=== PATIENT | female | born 1975 | race Caucasian/White ===

== ENCOUNTER 2020-05-18 11:11 | Emergency (ER) | payer MEDICAID, SELFPAY ==
[2020-05-18 11:16] VITALS: BMI 28.1
[2020-05-18 11:18] VITALS: BP 146/91; PULSE 91; RESP 18; TEMP 36.6; O2SAT 99
--- NOTE | 2020-05-18 11:30 | ED_ITS ---
HPI - Abdominal Pain General: Chief Complaint: Abdominal Pain Stated Complaint: abd pain/n/v Time Seen by Provider: 05/18/20 11:16 Source: patient Mode of arrival: ambulatory Limitations: no limitations History of Present Illness: HPI narrative: Ms. Candelario is a very nice 44-year-old female who comes in complaining of an of the local hernia causing pain for the past 6 to 8 months. The pain is been intermittent in nature but is becoming more frequent and more significant. The patient has associated nausea vomiting with eating but denies any other abdominal pain. Patient has any upper abdominal pain or lower abdominal pain. There is no describe urinary symptoms such as frequency or urgency. There is been no fevers or chills. She is having regular bowel movements. Hernia self is not tender but she feels as though when she eats she gets sick to her stomach and throws up and she feels like this is due to the hernia. She is not seen or had anyone evaluate this up to this point. Pain does not radiate. The patient was going to be seen at [facility] today but because of her lack of insurance she was referred here to the emergency department. Associated Symptoms: Reports nausea and vomiting; Denies diarrhea, dysuria, fever(s) and syncope Related Data: Date of Last Menstrual Period: 05/11/20 Review of Systems Const: Denies: fever(s) Eyes: Denies: change in vision or blurry vision ENMT: Denies: throat pain or hoarseness Card: Denies: chest pain, palpitations, syncope, pre-syncope or dyspnea on exertion Resp: Denies: dyspnea, productive cough or non-productive cough GI: Reports: abdominal pain, nausea and vomiting; Denies: diarrhea : Denies: flank pain, dysuria, urinary frequency or urinary urgency Musc: Denies: neck pain, back pain or extremity pain Skin/Breast: Denies: rash or pruritus Neuro: Denies: headache(s), numbness in extremities, weakness in extremities or dizziness [facility] ED PFSH: Medical History (Updated 05/18/20 @ 13:18 by Marizol Diaz) No pertinent past medical history Surgical History (Updated 05/18/20 @ 11:32 by Marizol Diaz) History of reversal of tubal ligation History of tubal ligation Female Reproductive History: Date of last menstrual period: 08/11/20 Physical Exam Const: COMMON NORMALS: no acute distress, patient oriented x3, no limitations, healthy appearing and well nourished GENERAL APPEARANCE: cooperative, well kempt and well developed HENMT: COMMON NORMALS: normocephalic, atraumatic, external ears normal, EAC's normal and Normal external nose present HEAD & SCALP: normal to inspection, normocephalic and atraumatic FACE & SINUS: normal facial exam and face symmetric NOSE: Normal external nose present and Normal nares present EXTERNAL EAR: Yes external ears normal EXTERNAL AUDITORY CANAL: EAC's normal MOUTH: Normal oral and palatal mucosa present, lip normal and tongue normal Eye: COMMON NORMALS: Equal, round and reactive pupils present and conjunctivae normal GENERAL EYE: appearance normal, both eyes and all related structures ALIGNMENT: Yes alignment normal PERIORBITAL: periorbital findings normal EYELID: eyelids normal CONJUNCTIVA: Yes conjunctivae normal SCLERA: sclerae normal PUPIL: Yes Equal, round and reactive pupils present Neck/C-Spine: COMMON NORMALS: full ROM, no lymphadenopathy, supple, no meningeal signs and no JVD GENERAL: Yes normal visual inspection and Yes trachea midline Chest: COMMONS NORMALS: normal inspection of the chest and normal palpation of entire chest wall Resp: COMMON NORMALS: normal respiratory effort, No retractions, No use of accessory muscles and clear to auscultation bilaterally EFFORT & INSPECTION: Yes able to speak in complete sentences and Yes symmetric chest movement AUSCULTATION: clear to auscultation bilaterally, no crackles, no rales, no rhonchi and no wheezes Cardio: COMMON NORMALS: no JVD, regular rate, regular rhythm, S1 normal heart sound present and S2 normal heart sound present RATE: regular rate RHYTHM: regular rhythm HEART SOUNDS: S1 normal heart sound present, S2 normal heart sound present, no click, no gallops, no murmurs, no rubs and abnormal split S2 GI: COMMON NORMALS: Soft to palpation and No hepatosplenomegaly present PALPATION: Yes Soft to palpation, No Tenderness to palpation present (GI), No Guarding due to palpation present (GI), No Rigid due to palpation, Yes No hepatosplenomegaly present, No Hernia present, No Palpable mass present, No Pulsatile mass present and Yes Other GI palpation findings present (Supraumbilical hernia that is nontender to the touch and soft. With mild palpation cephalad the hernia reduces. The patient felt resolution of the hernia with this.) : COMMON NORMALS: Yes no CVA tenderness BLADDER/KIDNEY EXAM: Yes no CVA tenderness EXTERNAL FEMALE EXAM: No Hernia present Back/Pelvis: COMMON NORMALS: no CVA tenderness, thoracic and lumbar spine normal to inspection, no thoracic nor lumbar tenderness and thoraco-lumbar ROM normal Extremity: COMMON NORMALS: normal to inspection, full ROM, capillary refill normal, no joint enlargement, no clubbing, cyanosis or edema and no calf te nderness Neuro: COMMON NORMALS: patient oriented x3, CN's II-XII intact bilaterally, moves all extremities, no focal motor deficits and no sensory deficits noted MENINGEAL SIGNS: Yes no meningeal signs SPEECH: speech normal Psych: COMMON NORMALS: mental status grossly normal, Normal thought process present, cooperative, normal affect, speech normal and activity/motor behavior normal APPEARANCE: Yes well kempt SPEECH: Yes normal speech THOUGHT PROCESS: Normal thought process present Skin: COMMON NORMALS: no rashes or lesions noted, turgor normal, no jaundice, no petechiae and no mottling GENERAL SKIN EXAM: no rashes or lesions noted and turgor normal Course Vital Signs: Vital signs: Vital Signs Temperature 97.8 F 05/18/20 11:18 Pulse Rate 74 05/18/20 12:41 Respiratory Rate 16 05/18/20 12:41 Blood Pressure 145/93 05/18/20 12:41 Pulse Oximetry 100 05/18/20 12:41 MDM - Abdominal Pain MDM Narrative: Medical decision making narrative: Arrival - Mrs. Candelario is a nice 44-year-old female who comes in with stable vital signs with chronic abdominal pain for the past 6 to 8 months. On exam hernia is palpated and was reduced without any tenderness hernia was soft and nontender. Differential includes small bowel obstruction, incarcerated hernia, upper abdominal pain when others. At this time there is no clinical sign of peritonitis. We will continue work-up here but patient had resolution of her symptoms we will continue to monitor here to see if she has recurrence. Discharge -patient's pain has gradually improved. She did have a recurrence of her pain shortly after and the concern of possible peritonitis or bowel necrosis was possible. The patient though states she is gradually had improvement of her pain. The umbilical hernia is gone now. CT shows no sign of obstruction, bowel necrosis or otherwise. Clinically the patient had umbilical hernia that reduced but she had continued pain. I will go and discharge her and she agrees to follow-up with Dr. Szymanski. I did review with her at length the signs and symptoms for which to return here and she states she will do so. Lab Data: Labs: Lab Results 05/18/20 05/18/20 05/18/20 Range/Units 11:22 11:30 11:30 WBC 6.5 (4.0-10.0) 10^3/ uL RBC 4.01 L (4.1-5.3) 10^6/u L Hgb 12.8 (11.5-15.3) g/dL Hct 38.9 (37.0-47.0) % MCV 97.0 (81-99) fL MCH 31.9 (28.0-34.0) pg MCHC 32.9 (30.0-36.0) g/dL RDW 12.0 L (12.1-15.1) % Plt Count 305 (130-400) 10^3/c mm MPV 10.3 (7.4-10.4) fL Neut % (Auto) 60.8 % Lymph % (Auto) 28.8 % [place] % (Auto) 7.9 % Eos % (Auto) 0.9 % Baso % (Auto) 1.1 % Neut # (Auto) 3.95 (1.8-7.7) 10^3/u L Lymph # (Auto) 1.9 (0.8-4.8) 10^3/u L [place] # (Auto) 0.5 (0.2-0.9) 10^3/u L Eos # (Auto) 0.1 (0.0-0.8) 10^3/u L Baso # (Auto) 0.1 (0.0-0.1) 10^3/u L Nucleated RBC % (a uto) 0 % Nucleated RBCs # 0.0 /100WBC Sodium 137 (136-145) mmol/L Potassium 4.1 (3.5-5.1) mmol/L Chloride 99 (98-107) mmol/L Carbon Dioxide 29 (22-29) mmol/L Anion Gap 13.1 (5-19) BUN 9 (6-20) mg/dL Creatinine 0.6 (0.5-0.9) mg/dL GFR Calculation 108.1 (90-130) mL/min Glucose 93 (65-115) mg/dL Calculated Osmolal ity 280 L (285-295) mOsm/k g Lactic Acid (0.5-2.2) mmol/L Calcium 9.4 (8.5-10.5) mg/dL Total Bilirubin 0.2 (0.15-1.2) mg/dL AST 27 (0-32) U/L ALT 40 H (0-33) U/L Alkaline Phosphata se 105 (35-105) IU/L Total Protein 7.8 (6.6-8.7) g/dL Albumin 4.5 (3.5-5.2) g/dL Globulin 3.3 (1.3-4.6) g/dL Lipase 38 (13-60) U/L HCG, Qual (Negative) Urine Color Yellow (Yellow) Urine Appearance Clear (CLEAR) Urine pH 6 (5-7) Ur Specific Gravit y 1.015 (1.005-1.030) Urine Protein Neg (Negative) Urine Glucose (UA) Norm (Normal) Urine Ketones Negative (Negative) Urine Blood Neg (Negative) Urine Nitrate Negative (Negative) Urine Bilirubin Neg (NEGATIVE) Urine Urobilinogen Norm (Negative) mg/dL Ur Leukocyte Phoebe ase Negative (Negative) Urine RBC None (0-2) /hpf Urine WBC None (0-5) /hpf Ur Squamous Epith Cells 5-10 H (0-5) Amorphous Sediment Not Reportable Urine Bacteria Trace (NONE) 05/18/20 05/18/20 Range/Units 11:30 11:30 WBC (4.0-10.0) 10^3/ uL RBC (4.1-5.3) 10^6/u L Hgb (11.5-15.3) g/dL Hct (37.0-47.0) % MCV (81-99) fL MCH (28.0-34.0) pg MCHC (30.0-36.0) g/dL RDW (12.1-15.1) % Plt Count (130-400) 10^3/c mm MPV (7.4-10.4) fL Neut % (Auto) % Lymph % (Auto) % [place] % (Auto) % Eos % (Auto) % Baso % (Auto) % Neut # (Auto) (1.8-7.7) 10^3/u L Lymph # (Auto) (0.8-4.8) 10^3/u L [place] # (Auto) (0.2-0.9) 10^3/u L Eos # (Auto) (0.0-0.8) 10^3/u L Baso # (Auto) (0.0-0.1) 10^3/u L Nucleated RBC % (a uto) % Nucleated RBCs # /100WBC Sodium (136-145) mmol/L Potassium (3.5-5.1) mmol/L Chloride (98-107) mmol/L Carbon Dioxide (22-29) mmol/L Anion Gap (5-19) BUN (6-20) mg/dL Creatinine (0.5-0.9) mg/dL GFR Calculation (90-130) mL/min Glucose (65-115) mg/dL Calculated Osmolal ity (285-295) mOsm/k g Lactic Acid 1.5 (0.5-2.2) mmol/L Calcium (8.5-10.5) mg/dL Total Bilirubin (0.15-1.2) mg/dL AST (0-32) U/L ALT (0-33) U/L Alkaline Phosphata se (35-105) IU/L Total Protein (6.6-8.7) g/dL Albumin (3.5-5.2) g/dL Globulin (1.3-4.6) g/dL Lipase (13-60) U/L HCG, Qual Negative (Negative) Urine Color (Yellow) Urine Appearance (CLEAR) Urine pH (5-7) Ur Specific Gravit y (1.005-1.030) Urine Protein (Negative) Urine Glucose (UA) (Normal) Urine Ketones (Negative) Urine Blood (Negative) Urine Nitrate (Negative) Urine Bilirubin (NEGATIVE) Urine Urobilinogen (Negative) mg/dL Ur Leukocyte Phoebe ase (Negative) Urine RBC (0-2) /hpf Urine WBC (0-5) /hpf Ur Squamous Epith Cells (0-5) Amorphous Sediment Urine Bacteria (NONE) Discharge Plan Discharge Patient Disposition: Home Clinical Impression: Umbilical hernia Qualifiers: Obstruction and gangrene presence: without obstruction or gangrene Qualified Code(s): K42.9 - Umbilical hernia without obstruction or gangrene Condition: Stable Prescriptions: No Action ibuprofen 800 mg Tablet 800 mg PO TID PRN (Reason: Pain) RF: 0 acyclovir 400 mg tablet 400 mg PO BID RF: 0 Discharge Orders: Discharge Order (Routine); Ordered 05/18/20 Ordered By: Marizol Diaz Referrals: Anna Kenney MD [Primary Care Provider] - 1-3 days Willie Szymanski MD [Physician] - 1-3 days Discharge Diet: Advance as tolerated Discharge Activity: Increase activity as tolerated Patient Instructions: Umbilical Hernia (ED) Activity Restrictions/Additional Instructions: Please return to the ER immediately for any of the signs or symptoms listed on your discharge instruction sheets, worsening/changing of your symptoms, you are not getting better as quickly as expected, or for ANY other cause or concerns. Please return to the ER for vomiting, return of your hernia, fever, or for any other cause for concern. Be certain to follow-up with Dr. Szymanski for recheck and further evaluation and care. Coding Level of Care Code ED Dye Expert for Chg Fwd Exam Comprehensive
--- NOTE | 2020-05-18 11:40 | CT_ITS ---
WS: [id number] CT ABDOMEN AND PELVIS WITH CONTRAST HISTORY: Abdominal pain, diffuse abdominal pain for 6 months TECHNIQUE: Imaging performed of the abdomen and pelvis with IV contrast. Single phase imaging of the abdomen. Coronal and sagittal reformats are submitted. All CT scans at [facility] use at least one of these dose optimization techniques: automated exposure control; mA and/or kV adjustment per patient size (includes targeted exams where dose is matched to clinical indication); or iterativ e reconstruction. IV CONTRAST: Omnipaque 300; 95 mL IV. Oral contrast: No DLP: 1012.78 mGy.cm COMPARISON: None available. Lower thorax: Lung bases are clear. Bilateral breast implants. Heart is normal size. Small hiatal her vin. Liver/biliary system: Normal size with no intrahepatic dilatation. Gallbladder: Gallbladder is contracted. Pancreas: Normal. Spleen: Normal size with granulomata. Adrenal glands: Normal. Right kidney: Normal. Left kidney: Normal. Aorta: Normal. Lymphadenopathy: None. Free fluid: None. GI tract: Normal appendix. No GI tract obstruction. There is mild diffuse constipation with no signif icant diverticular disease. Abdominal wall: Small ventral abdominal wall hernia contains fat only. Pelvis: Mildly enlarged uterus with myometrial heterogeneity which is probably related to fibroids. S mall bilateral ovarian follicles. No solid mass. Bones: Unremarkable. CT/CT abdomen pelvis w con* [id number] IMPRESSION: 1. Mild constipation. 2. Normal appendix. 3. No acute abdominal or pelvic abnormalities. 4. No ascites or adenopathy.
[2020-05-18 11:50] LABS: Basophils # 0.1 10^3/uL (0.0-0.1); Basophils % 1.1 %; Eosinophils # 0.1 10^3/uL (0.0-0.8); Eosinophils % 0.9 %; Hematocrit 38.9 % (37.0-47.0); Hemoglobin 12.8 g/dL (11.5-15.3); Lymphocytes # 1.9 10^3/uL (0.8-4.8); Lymphocytes % 28.8 %; Mean Corpuscular HGB Conc 32.9 g/dL (30.0-36.0); Mean Corpuscular Hemoglobin 31.9 pg (28.0-34.0); Mean Platelet Volume 10.3 fL (7.4-10.4); Monocytes # 0.5 10^3/uL (0.2-0.9); Monocytes % 7.9 %; Neutrophils # 3.95 10^3/uL (1.8-7.7); Neutrophils % 60.8 %; Nucleated Red Blood Cells % 0 %; Platelet Count 305 10^3/cmm (130-400); Red Blood Count 4.01 10^6/uL (4.1-5.3); White Blood Count 6.5 10^3/uL (4.0-10.0)
[2020-05-18 12:00] LABS: Alanine Aminotransferase 40 U/L (0-33); Albumin Level 4.5 g/dL (3.5-5.2); Alkaline Phosphatase 105 IU/L (35-105); Anion Gap 13.1 (5-19); Aspartate Amino Transferase 27 U/L (0-32); Blood Urea Nitrogen 9 mg/dL (6-20); Calcium 9.4 mg/dL (8.5-10.5); Carbon Dioxide 29 mmol/L (22-29); Chloride 99 mmol/L (98-107); Globulin 3.3 g/dL (1.3-4.6); Glomerular Filtration Rate 108.1 mL/min (90-130); Glucose 93 mg/dL (65-115); HCG, Serum Qual Negative (Negative); Lactic Sepsis W/Reflex 1.5 mmol/L (0.5-2.2); Lipase 38 U/L (13-60); Osmolality Calculated 280 mOsm/kg (285-295); Potassium 4.1 mmol/L (3.5-5.1); Sodium 137 mmol/L (136-145); Total Bilirubin 0.2 mg/dL (0.15-1.2); Total Protein 7.8 g/dL (6.6-8.7)
[2020-05-18] MEDS: ondansetron 2 mg/ML SDV 2 mL 4 MG IVP (12:02)
[2020-05-18 12:04] LABS: Bilirubin Urine Neg (NEGATIVE); Blood Urine Neg (Negative); Glucose Urine UA Norm (Normal); Ketones Urine Negative (Negative); Leukocyte Esterase Urine Negative (Negative); Nitrate Urine Negative (Negative); Protein Urine Neg (Negative); Specific Gravity, Urine 1.015 (1.005-1.030); Urine Appearance Clear (CLEAR); Urine Color Yellow (Yellow); Urobilinogen Urine Norm (Negative); pH Urine 6 (5-7)
[2020-05-18 12:06] LABS: Add Urine Culture? No; Bacteria Urine TRACE
[2020-05-18] MEDS: iohexol 300 mg/mL 100 mL Btl IV (12:36)
[2020-05-18 12:39] VITALS: RESP 16; O2SAT 99
[2020-05-18] MEDS: morphine 4 mg/mL SDV 1 mL IVP (12:39)
[2020-05-18 12:41] VITALS: BP 145/93; PULSE 74; RESP 16; O2SAT 100
[2020-05-18 13:00] VITALS: BP 137/88; PULSE 67; RESP 16; O2SAT 99
== END 2020-05-18 13:33 | disposition home or self-care (01) ==
PROVIDERS: Emergency Provider Emergency Medicine; PCP Family Medicine
DX: K42.9 Umbilical hernia without obstruction or gangrene (principal)
CPT/HCPCS: 12345; 36415; 74177; 80053; 81001; 83605; 83690; 84703; 85025; 96374; 96375; 99283; J2270; J2405; Q9967

== ENCOUNTER → 2020-06-04 08:55 | Outpatient (BNVA) | payer MEDICAID, SELFPAY | PROVIDERS: PCP Family Medicine; Visit Provider Internal Medicine | DX: K42.9 Umbilical hernia without obstruction or gangrene (principal) | CPT/HCPCS: 87635 ==

== ENCOUNTER 2020-06-08 05:39 | Day surgery (SDC) | payer MEDICAID, SELFPAY ==
[2020-06-04 13:23] VITALS: BMI 28.1
[2020-06-08 06:09] LABS: OR HCG Qualitative Urine Negative (Negative)
[2020-06-08] MEDS: sodium chloride 0.9% 1,000 ML 30 ML IV (06:11)
[2020-06-08 06:13] VITALS: BP 148/81; PULSE 64; RESP 18; TEMP 36.5; O2SAT 99
--- NOTE | 2020-06-08 06:16 | W.PM.OPSUD ---
Surgery/Procedure H&P Update DATE OF PROCEDURE: June 08, 2020 DATE H&P PERFORMED: 05/27/20 H&P UPDATE INFORMATION: I have reviewed H&P completed within last 30 days, I have examined patient prior to procedure and No changes to prior documentation (I did discuss again with the patient about the potential need for mesh placement and she did agree to place a mesh and her spouse as well. Patient understands that she may proceed with an abdominoplasty surgery in the future and she does believe that she is interested to proceed with hernia surgery today) PREOP DIAGNOSIS: Symptomatic umbilical hernia PRIMARY INDICATION FOR PROCEDURE: The same PLANNED PROCEDURE: Operation Date: 06/08/20 07:00 Proposed Procedures p Umbilical Hernia Repair w/ Mesh 00020 K42.9(Not Applicable) - Willie Szymanski MD
--- NOTE | 2020-06-08 06:44 | ANES.PREANE2 ---
Pre-Anesthetic Assessment Pre-Anesthetic Assessment: Height/Weight: Height 1.73 m Weight 83.915 kg Temp Pulse Resp BP Pulse Ox 97.7 F 64 18 148/81 99 06/08/20 06:13 06/08/20 06:13 06/08/20 06:13 06/08/20 06:13 06/08/20 06:13 Preop Diagnosis: Symptomatic umbilical hernia Proposed Procedure: Operation Date: 06/08/20 07:00 Proposed Procedures p Umbilical Hernia Repair w/ Mesh 96105 K42.9(Not Applicable) - Willie Szymanski MD Familial anesthetic complications: none Was Beta Emma taken within 24 hours: N/A Last intake: Intake Last Liquid Date 06/07/20 Last Liquid Time 17:00 Last Solid Date 06/07/20 Last Solid Time 17:00 Last Intake: 17:00 Social: Social History: Alcohol (social) Exam: Pre-Anes Outpt Exam: alert, oriented x 3, clear to auscultation bilaterally and regular rate & rhythm Airway: Submandibular: WNL Cervical ROM: WNL MP: 1 Dentition: Full Pulmonary: Pulmonary: None reported CV/HEM: CV/HEM: None reported : : None reported Hepatic: Hepatic: None reported GI: GI: None reported Metabolic: Metabolic: None reported Musc/skel: Musc/skel: None reported Neuropsych: Neuropsych: None reported Anesthetic Plan: ASA status: 1 Anesthesia: Anesthesia Evaluation and General Meds/Allergies Current Medications: Current Medications Generic Name Dose Route Start Last Admin Trade Name Freq PRN Reason Stop Dose Admin Sodium Chloride 1,000 mls @ 30 ml s/hr 06/08/20 06:00 06/08/20 06:11 Sodium Chloride 0.9% IV 06/09/20 05:59 30 mls/hr .Q24H JAYSHREE Administration PFSH Anesthesia PFSH: Medical History No pertinent past medical history Surgical History History of reversal of tubal ligation History of tubal ligation Family History Father CAD (coronary artery disease) Diabetes Family/Other Cancer stomach Denies family history of Anesthesia complication Bleeding disorder Hypertension Social History Smoking and tobacco status: never smoked Alcohol intake: current Alcohol intake frequency: holidays/special occasions only Lives independently: Yes Marital status: Single Current occupational status: unemployed 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
[2020-06-08] MEDS: clindamycin 900 MG/50 ML PREMIX 100 MG IV (07:00)
[2020-06-08] MEDS: midazolam 1 mg/mL INJ 2 mL 2 MG IVP (07:01)
[2020-06-08] MEDS: lidocaine 2% INJ 20 mL INJECTION (07:58)
--- NOTE | 2020-06-08 08:02 | PM.OP ---
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 After thorough history physical examination and reviewing the chart and images with my personal interpretation I did branch credit counselor the patient for open umbilical hernia repair with possible mesh placement. Informed consent per chart Procedure: Patient was identified in holding area and the site of the hernia was marked by me ,Patient was brought then to the operating room, general endotracheal anesthesia was administered by the anesthesia provider.prophylactic IV antibiotics were given per protocol Time-out was done verifying the patient's name/date of /planned procedure and destination after the procedure, all were in agreement. SCDs confirmed to be functioning, preoperative antibiotics administered per protocol, and beta ama protocol was confirmed. Prep and drape of the abdomen was done under the usual sterile technique and Ioban was placed there after. I started by supra aumbilical skin incision, I was able to identify the incarcerated omentum within hernia, dissection was carried all the way down to the fascia, hernia sac was then opened and the sac was excised in addition to excess omental tissues they were removed after application of transfixing figure of eight 3-0 silk sutures were used for appropriate hemostasis and Tissues excised sent for permanent pathology I was able to free the overlying fat on top of the fascia, facilitate primary closure At that point the fascial defect was about inch-two inches in diameter, after freeing all the adhesions, under direct visualization I was able to use #1 PDS to repair the defect primarily, as a figure of 8 sutures under direct visualization, thorough irrigation of the wound was then achieved and hemostasis. Followed by application of polypropylene sheet mesh about 5 x 5 cm(on lay) anchored to the underlying fascia by 2-0 silk sutures.. Following that 2-0 Vicryl was used to attach the umbilicus to the underlying fascia, followed by deep dermal interrupted stitches, followed by 3-0 Vicryl, then 4-0 Monocryl was used for subcuticular closure of the skin incision.Lidocaine 2% was used for local infiltration to help postoperative pain,followed by surgical glue and pressure dressing.Abdominal binder was then placed. Counts of sponges,needles and instruments were completed at the end of the procedure, Patient tolerated the procedure well and was taken to the recovery area in stable condition after extubation I was present for the whole entire procedure
[2020-06-08 08:15] VITALS: BP 137/92; PULSE 104; RESP 16; TEMP 36.3; O2SAT 95
[2020-06-08 08:20] VITALS: BP 145/85; PULSE 82; RESP 16; O2SAT 100
[2020-06-08 08:25] VITALS: BP 141/85; PULSE 94; RESP 15; TEMP 36.3; O2SAT 96
[2020-06-08 08:37] VITALS: BP 151/93; PULSE 93; RESP 16; TEMP 36.3; O2SAT 100
[2020-06-08] MEDS: HYDROcodone-acetaminophen 5-325 mg Tablet 1 TAB PO (08:55)
--- NOTE | 2020-06-08 09:42 | ANE.PACU2 ---
Inpatient post-anesthesia follow up: Airway intact: Yes Vital signs: Temperature 97.3 F Pulse Rate 93 Respiratory Rate 16 Blood Pressure 151/93 Pulse Oximetry 100 Oxygen Delivery Me thod Room Air Oxygen Flow Rate 8 Fraction of Inspir ed Oxygen Hydration adequate: Yes Nausea and vomiting: No Pain level: 2 Mental status: Baseline
== END 2020-06-08 09:47 | disposition home or self-care (01) ==
PROVIDERS: PCP Family Medicine; Visit Provider Surgery
PROC: (CPT 49587; principal; 2020-06-08 07:00)
DX: K42.9 Umbilical hernia without obstruction or gangrene (principal); Z88.0 Allergy status to penicillin
CPT/HCPCS: 49587; 12345; 84703; 88302; 96365; J0131; J2250; J2704; J2710; J3010; J3490; J7030

== ENCOUNTER 2020-07-26 14:40 | Outpatient (CLI) | payer MEDICAID, SELFPAY ==
--- NOTE | 2020-07-26 14:46 | MM_ITS ---
WS: [id number] BILATERAL SCREENING MAMMOGRAM WITH MEHREEN DISPLACEMENT VIEWS. CAD PERFORMED. HISTORY: SCREENING COMPARISON: None available. Bilateral craniocaudal and mediolateral like views are performed. Mehreen displacement views in CC and MLO projection also performed. Breasts composition: The breasts are heterogeneously dense, which may obscure small masses. Implants are retropectoral and intact. No mass or calcification. No nipple retraction. MM/[place] [id number] IMPRESSION: BI-RADS: 2-Benign FOLLOW-UP: 1 Year Follow-up
== END 2020-07-26 14:41 | disposition home or self-care (01) ==
LOC: RADSHAW 14:45
PROVIDERS: PCP Family Medicine; Visit Provider Family Medicine
DX: Z12.31 Encounter for screening mammogram for malignant neoplasm of breast (principal)
CPT/HCPCS: 77067

== ENCOUNTER → 2020-08-13 12:11 | Outpatient (BNVA) | payer MEDICAID, SELFPAY | PROVIDERS: PCP Family Medicine; Visit Provider Surgery | DX: Z12.11 Encounter for screening for malignant neoplasm of colon (principal); Z20.828 Contact with and (suspected) exposure to other viral communicable diseases; Z11.59 Encounter for screening for other viral diseases | CPT/HCPCS: 87635 ==

== ENCOUNTER 2022-10-27 08:40 | Outpatient (CLI) | payer MEDICAID, SELFPAY ==
--- NOTE | 2022-10-27 08:56 | MM_ITS ---
WS: [id number] VIEWS: MLO and CC views both breasts. 3D digital tomosynthesis is also included in this exam. Comparison made with prior exam of 07/26/2020. Findings: There is a 2 cm partially obscured nodule in the anterior central right breast almost directly behind the nipple. This may represent a cyst. No other significant finding in the right breast. The left br east is unchanged. No architectural distortion or suspicious calcification in either breast. Heterog eneously dense breasts. Regional ultrasound of the right breast would be recommended for further work up. MM/[place] [id number] Impression: BI-RADS: 0-Incomplete: Need additional imaging evaluation FOLLOW-UP: See Report This mammogram was also analyzed by the Computer Aided Detection System R2 Imag e Solar Installer.
== END 2022-10-27 08:41 | disposition home or self-care (01) ==
LOC: RAD 08:41
PROVIDERS: PCP Family Medicine; Visit Provider Family Medicine
DX: Z12.31 Encounter for screening mammogram for malignant neoplasm of breast (principal)
CPT/HCPCS: 77063; 77067

== ENCOUNTER 2022-11-24 12:27 | Outpatient (CLI) | payer MEDICAID, SELFPAY ==
--- NOTE | 2022-11-24 12:47 | US_ITS ---
WS: [id number] Exam: US breast BI limited* [id number] Date/Time of Exam: 11/24/2022 12:58 PM Reason For Exam: PAIN IN BOTH BREAST/LUMP/NODULE ON RT Regional ultrasound of the retroareolar area of the right breast is performed. There is a 1.2 cm cyst directly behind the nipple. This corresponds to the nodular density described on screening mammography 10/27/2022. No suspicious solid lesions were noted in this region. Limited ultrasound of the retroareolar area of the left breast was also performed due to pain. No sig nificant solid nodule or mass noted in this region. No cysts were identified. Recommendations: Continue yearly screening mammography. US/US breast BI limited* [id number] IMPRESSION: 1. 1.2 cm cyst almost directly behind the right nipple which corresponds to the abnormality identified on recent mammography. 2. Limited ultrasound of the left retroareolar area due to pain demonstrated no suspicious finding.
== END 2022-11-24 12:28 | disposition home or self-care (01) ==
PROVIDERS: PCP Family Medicine; Visit Provider Family Medicine
DX: N64.4 Mastodynia (principal); N60.01 Solitary cyst of right breast
CPT/HCPCS: 76642

== ENCOUNTER 2023-06-03 09:49 | Emergency (ER) | payer MEDICAID, SELFPAY ==
[2023-06-03 10:01] VITALS: BP 165/96; PULSE 74; RESP 17; TEMP 37.1; O2SAT 98
[2023-06-03 10:06] VITALS: BP 165/96; PULSE 74; RESP 16; O2SAT 98
--- NOTE | 2023-06-03 10:40 | ED_ITS ---
HPI - Female Genitourinary General: Chief complaint: Vaginal Bleeding Stated complaint: bleeding, abd pain Time Seen by Provider: 06/03/23 10:03 History of Present Illness: Patient is a 47-year-old female that presents to the emergency department with complaints of dysfunctional uterine bleeding for 1 month. Patient has been working with her primary care provider and underwent an ultrasound 2 weeks ago. She has been placed on iron pills as well as control to help control bleeding. Patient states that in spite of this she continues to bleed large amounts and large clots. She has low abdominal cramping. Patient denies any other medical history we have been able to access her ultrasound records. Associated symptoms: Deny abdominal pain, headache(s) or nausea Review of Systems General: Reports: 10 or more systems reviewed and unremarkable except in HPI and below Const: Denies: fever(s), chills, change in appetite, change in weight, fatigue or malaise Eyes: Denies: change in vision, eye discomfort, eye discharge or eye redness ENMT: Denies: throat pain, enlarged tonsils, odynophagia, hoarseness, ear or mastoid pain, ear discharge, change in hearing, tinnitus, nasal discharge, nasal congestion, post nasal drip or sinus pain Card: Denies: chest pain, palpitations, irregular heart rhythm, edema, dyspnea on exertion, orthopnea or leg pain with exertion Resp: Denies: dyspnea, productive cough, non-productive cough, wheezing, stridor or chest congestion GI: Denies: abdominal pain, nausea, vomiting, dysphagia, diarrhea, constipation, bloating, GI cramping or hematochezia : Reports: vaginal bleeding, dysmenorrhea, irregular period and m etrorrhagia; Denies: flank pain, difficulty voiding, dysuria, urinary frequency, urinary urgency, urinary hesitancy, oliguria or hematuria Musc: Denies: neck pain, back pain, extremity pain, joint pain, joint swelling, joint redness, joint warmth or muscle weakness Skin/Breast: Denies: rash, pruritus, erythema, photosensitivity or new lesions Neuro: Denies: headache(s), numbness in extremities, weakness in extremities, sensory changes, lack of coordination, difficulty walking, frequent falls, dizziness, confusion, Slurred speech present, difficulty communicating thoughts, seizure-like activity or involuntary movements Endo: Denies: polyuria, polydipsia or tired all the time Claudy/Lymph: Denies: easy bruising or easy bleeding PFSH ED PFSH: Medical History (Updated 06/03/23 @ 14:01 by MAYELIN Stanton) No pertinent past medical history Surgical History History of reversal of tubal ligation History of tubal ligation Family History Father CAD (coronary artery disease) Diabetes Family/Other Cancer stomach Denies family history of Anesthesia complication Bleeding disorder Hypertension Social History Smoking and tobacco status: never smoked Alcohol intake: current Alcohol intake frequency: holidays/special occasions only Substance/Drug Use: never Lives independently: Yes Marital status: Single Current occupational status: unemployed Physical Exam Const: COMMON NORMALS: no acute distress, patient oriented x3 and alert GENERAL APPEARANCE: cooperative ORIENTATION/CONSCIOUSNESS: Yes awake, Yes oriented to person, Yes oriented to place and Yes oriented to time HENMT: COMMON NORMALS: normocephalic and atraumatic HEAD & SCALP: normocephalic and atraumatic FACE & SINUS: normal facial exam MOUTH: Normal oral and palatal mucosa present THROAT: posterior oropharynx normal Eye: COMMON NORMALS: Equal, round and reactive pupils present, EOMs intact bilaterally, conjunctivae normal and no scleral icterus GENERAL EYE: appearance normal, both eyes and all related structures ALIGNMENT: Yes alignment normal PERIORBITAL: periorbital findings normal CONJUNCTIVA: Yes conjunctivae normal PUPIL: Yes Equal, round and reactive pupils present Neck/C-Spine: COMMON NORMALS: full ROM GENERAL: Yes normal visual inspection Lymph: LYMPHATIC: no lymphadenopathy noted Chest: COMMONS NORMALS: normal inspection of the chest Breast/axilla inspection: Yes no chest deformity, asymmetry, normal contours, no nodules, masses, tenderness Resp: COMMON NORMALS: normal respiratory effort, No retractions, No use of accessory muscles and clear to auscultation bilaterally EFFORT & INSPECTION: Yes able to speak in complete sentences and Yes symmetric chest movement AUSCULTATION: clear to auscultation bilaterally Cardio: COMMON NORMALS: regular rate, regular rhythm and Peripheral pulses 2+ throughout RATE: regular rate RHYTHM: regular rhythm PERIPHERAL PULSES: Peripheral pulses 2+ throughout GI: COMMON NORMALS: Normal to inspection, nondistended, normoactive bowel sounds present, Soft to palpation, non-tender and No hepatosplenomegaly present INSPECTION: Yes normal to inspection AUSCULTATION: Yes normoactive bowel sounds PALPATION: Yes Soft to palpation and Yes No hepatosplenomegaly present RECTAL EXAM: deferred Extremity: COMMON NORMALS: normal to inspection GENERAL: Yes normal exam except as noted Neuro: COMMON NORMALS: patient oriented x3 SENSORIUM/ORIENTATION: Yes alert, Yes oriented to person, Yes oriented to place and Yes oriented to time CRANIAL NERVES: Yes CN normal except as noted Psych: COMMON NORMALS: mental status grossly normal, Normal thought process present, cooperative, activity/motor behavior normal, denies homicidal ideation and denies suicidal ideation THOUGHT PROCESS: Normal thought process present Skin: COMMON NORMALS: no rashes or lesions noted, no wounds and turgor normal GENERAL SKIN EXAM: no rashes or lesions noted and turgor normal Course Vital Signs: Vital signs: Vital Signs Temperature 98.7 F 06/03/23 10:01 Pulse Rate 87 06/03/23 11:30 Respiratory Rate 16 06/03/23 11:30 Blood Pressure 166/99 06/03/23 11:30 Pulse Oximetry 99 06/03/23 11:30 Oxygen Delivery Me thod Room Air 06/03/23 10:01 MDM - Female Medical Decision Making Patient was evaluated in the emergency department for abnormal uterine bleeding. Patient states this has been going on for greater than a month and she has been managed by her primary care provider. She has undergone transvaginal ultrasound which I have obtained the results for. Does have evidence of endometrial wall thickening as well as fibroids. Patient is currently being treated with iron pills and control. Appears as though this is not adequately managing her symptoms. I have sent a referral to case management to establish a gynecological referral. Patient is agreeable with this. We did obtain laboratory studies to evaluate her anemia. Currently her hemoglobin is 9.7. Well explained to her that this is low this is not something that would require transfusion at this time. Patient is hemodynamically stable without any clinical findings of anemia. I have advised her to continue her current path and to follow-up with gynecology as we had discussed. I did order urinalysis unfortunately the patient was unable to provide this. We are going to go ahead and discharge her anyway. She is to follow-up with her providers as discussed all questions answered Lab Data 06/03/23 10:38 06/03/23 13:00 Laboratory Results WBC 9.42 10^3/uL (3.29-11.43) 06/03/23 10:38 RBC 3.34 10^6/uL (3.85-5.65) L 06/03/23 10:38 Hgb 9.70 g/dL (11.27-16.99) L 06/03/23 10:38 Hct 30.0 % (36-47) L 06/03/23 10:38 MCV 89.8 fl (85-98) 06/03/23 10:38 MCH 29.0 pg (27-33) 06/03/23 10:38 MCHC 32.3 g/dL (30-55) 06/03/23 10:38 RDW 12.7 % (12.1-15.1) 06/03/23 10:38 Plt Count 277 10^3/cmm (157-399) 06/03/23 10:38 MPV 10.9 fL (7.4-10.4) H 06/03/23 10:38 Neut % (Auto) 71.6 % 06/03/23 10:38 Lymph % (Auto) 19.5 % 06/03/23 10:38 [place] % (Auto) 7.1 % 06/03/23 10:38 Eos % (Auto) 0.7 % 06/03/23 10:38 Baso % (Auto) 0.7 % 06/03/23 10:38 Neut # (Auto) 6.73 10^3/uL (1.8-7.7) 06/03/23 10:38 Lymph # (Auto) 1.8 10^3/uL (0.8-4.8) 06/03/23 10:38 [place] # (Auto) 0.7 10^3/uL (0.2-0.9) 06/03/23 10:38 Eos # (Auto) 0.1 10^3/uL (0.0-0.8) 06/03/23 10:38 Baso # (Auto) 0.1 10^3/uL (0.0-0.1) 06/03/23 10:38 Nucleated RBC % (auto) 0 % 06/03/23 10:38 Nucleated RBCs # 0.0 /100WBC 06/03/23 10:38 Sodium 138 mmol/L (136-145) 06/03/23 13:00 Potassium 3.9 mmol/L (3.5-5.1) 06/03/23 13:00 Chloride 102 mmol/L (98-107) 06/03/23 13:00 Carbon Dioxide 26 mmol/L (22-29) 06/03/23 13:00 Anion Gap 13.9 (5-19) 06/03/23 13:00 BUN 6 mg/dL (6-20) 06/03/23 13:00 Creatinine 0.6 mg/dL (0.5-0.9) 06/03/23 13:00 GFR Calculation 106.7 mL/min (90-130) 06/03/23 13:00 Glucose 105 mg/dL (65-115) 06/03/23 13:00 Calculated Osmolality 284 mOsm/kg (285-295) L 06/03/23 13:00 Calcium 9.3 mg/dL (8.5-10.5) 06/03/23 13:00 Total Bilirubin 0.2 mg/dL (0.15-1.2) 06/03/23 13:00 AST 13 U/L (0-32) 06/03/23 13:00 ALT 12 U/L (0-33) 06/03/23 13:00 Alkaline Phosphatase 85 U/L (35-105) 06/03/23 13:00 Total Protein 7.8 g/dL (6.6-8.7) 06/03/23 13:00 Albumin 4.3 g/dL (3.5-5.2) 06/03/23 13:00 Globulin 3.5 g/dL (1.3-4.6) 06/03/23 13:00 Other Data Endovaginal ultrasound from MAY 23, 2023 FINDINGS: Uterus: Transabdominal images limited by incomplete urinary bladder distention. The cervical length is 4.57 cm. Closed as visualized. Uterus 11.6 x 6.0 x 8.0 transabdominally. Endometrium 2.9 cm transabdominally, 17.5 mm transvaginally, ill-defined, mucosa isoechoic, mildly hypervascular by color Doppler. Anterior upper uterine corporal hypoechoic/isoechoic partially shadowing leiomyoma measuring 3.4 x 3.3 x 3.4 cm transabdominally, 3.9 x 3.7 cm by transvaginal imaging. Posterior upper corporal partially shadowing intramural/submucosal 2.0 x 1.4 cm leiomyoma by transvaginal imaging. Right ovary/adnexa: Right ovary not identified transabdominally. Right ovary 1.8 x 2.8 x 2.6 cm transvaginally. 6 mm follicle. No cyst or mass. Normal color Doppler shifts. Left ovary/adnexa: Left ovary not identified transabdominally. Left ovary 2.6 x 3.1 x 4.7 cm transvaginally. Anechoic left ovarian 4.7 x 2.5 x 1.9 cm (3.0 cm mean) cyst. Normal color Doppler shifts. Intraperitoneal space: No intraperitoneal fluid. Urinary bladder: Normal. US/US pelv w/transvag [id number] IMPRESSION: 1. ? Uterine leiomyomata. 2. ? Nonspecific endometrial thickening. Endometrial hyperplasia not excluded. 3. ? Left ovarian cyst. No follow-up required ([employer], 2019). Discharge Plan Discharge Patient Disposition: Home Clinical Impression: Abnormal uterine and vaginal bleeding, unspecified Condition: Stable Prescriptions: New ibuprofen 800 mg tablet 800 mg PO TID PRN (Reason: pain) Qty: 30 0RF No Action acyclovir 400 mg tablet 400 mg PO BID Estarylla 0.25-35 mg-mcg tablet 1 tab PO DAILY omeprazole 40 mg capsule,delayed release(DR/EC) 40 mg PO DAILY FeroSul 325 mg (65 mg iron) tablet 325 mg PO DAILY escitalopram oxalate 10 mg tablet 10 mg PO DAILY Discharge Orders: Discharge ED (Routine); Ordered 06/03/23 Ordered By: Adriano Avalos Referrals: Anna Kenney MD [Primary Care Provider] - Discharge Diet: Advance as tolerated Discharge Activity: Resume usual activity Patient Instructions: Abnormal (Dysfunctional) Uterine Bleeding (ED), Pain Management Activity Restrictions/Additional Instructions: Please return to the emergency department for new concerning or worsening symptoms Coding Level of Care Code ED Drophammer Operator for Chg Fwd
[2023-06-03 10:58] LABS: Basophils # 0.1 10^3/uL (0.0-0.1); Basophils % 0.7 %; Eosinophils # 0.1 10^3/uL (0.0-0.8); Eosinophils % 0.7 %; Lymphocytes # 1.8 10^3/uL (0.8-4.8); Lymphocytes % 19.5 %; Mean Corpuscular HGB Conc 32.3 g/dL (30-55); Mean Corpuscular Volume 89.8 fl (85-98); Mean Platelet Volume 10.9 fL (7.4-10.4); Monocytes # 0.7 10^3/uL (0.2-0.9); Monocytes % 7.1 %; Neutrophils # 6.73 10^3/uL (1.8-7.7); Neutrophils % 71.6 %; Nucleated Red Blood Cells % 0 %; Platelet Count 277 10^3/cmm (157-399); Red Blood Count 3.34 10^6/uL (3.85-5.65); Red Cell Distribution Width 12.7 % (12.1-15.1); White Blood Count 9.42 10^3/uL (3.29-11.43)
[2023-06-03 11:30] VITALS: BP 166/99; PULSE 87; RESP 16; O2SAT 99
[2023-06-03] MEDS: ketorolac 30 mg/mL INJ IVP (11:59)
[2023-06-03 13:29] LABS: Alanine Aminotransferase 12 U/L (0-33); Albumin Level 4.3 g/dL (3.5-5.2); Alkaline Phosphatase 85 U/L (35-105); Anion Gap 13.9 (5-19); Aspartate Amino Transferase 13 U/L (0-32); Blood Urea Nitrogen 6 mg/dL (6-20); Calcium 9.3 mg/dL (8.5-10.5); Carbon Dioxide 26 mmol/L (22-29); Chloride 102 mmol/L (98-107); Creatinine Clr Calc Pharmacy 131.8054; Globulin 3.5 g/dL (1.3-4.6); Glomerular Filtration Rate 106.7 mL/min (90-130); Glucose 105 mg/dL (65-115); Osmolality Calculated 284 mOsm/kg (285-295); Potassium 3.9 mmol/L (3.5-5.1); Sodium 138 mmol/L (136-145); Total Bilirubin 0.2 mg/dL (0.15-1.2); Total Protein 7.8 g/dL (6.6-8.7)
--- NOTE | 2023-06-04 07:44 | DCPLANNER ---
Addendum entered by Bertha Rome 06/05/23 14:26: Patient has a follow up appointment scheduled for Tuesday, June 27, 2023 at 9:[address] Lopez at [facility]. Original Note: games manager had message to schedule a follow up appointment for patient with [facility]. games manager sent patients information to the front office staff at [facility]. Patients information will be printed and reviewed. Clinic will call patient with appointment information.
== END 2023-06-03 14:20 | disposition home or self-care (01) ==
PROVIDERS: Emergency Provider Nurse Practitioner; PCP Family Medicine
DX: N93.9 Abnormal uterine and vaginal bleeding, unspecified (principal)
CPT/HCPCS: 80053; 85025; 96374; 99284; J1885

== ENCOUNTER → 2025-01-12 09:20 | Outpatient (BNVA) | payer MEDICAID, SELFPAY | PROVIDERS: PCP Family Medicine; Visit Provider Obstetrics & Gynecology | DX: N92.1 Excessive and frequent menstruation with irregular cycle (principal) | CPT/HCPCS: 83001; 84443; 84702; 85025 ==

== ENCOUNTER → 2025-01-20 07:55 | Outpatient (BNVA) | payer MEDICAID, SELFPAY | PROVIDERS: PCP Family Medicine; Visit Provider Obstetrics & Gynecology | DX: N83.202 Unspecified ovarian cyst, left side (principal); D25.9 Leiomyoma of uterus, unspecified | CPT/HCPCS: 76830 ==

== ENCOUNTER 2025-01-29 11:40 | Outpatient (CLI) | payer MEDICAID, SELFPAY ==
[2025-01-29 12:03] LABS: Basophils # 0.1 10^3/uL (0.0-0.1); Eosinophils # 0.3 10^3/uL (0.0-0.8); Eosinophils % 4.2 %; Lymphocytes # 1.7 10^3/uL (0.8-4.8); Lymphocytes % 27.8 %; Mean Corpuscular HGB Conc 28.7 g/dL (30-55); Mean Corpuscular Hemoglobin 25.6 pg (27-33); Mean Corpuscular Volume 89.3 fl (85-98); Mean Platelet Volume 10.1 fL (7.4-10.4); Monocytes # 0.5 10^3/uL (0.2-0.9); Monocytes % 7.6 %; Neutrophils # 3.51 10^3/uL (1.8-7.7); Neutrophils % 59.2 %; Nucleated Red Blood Cells % 0 %; Platelet Count 307 10^3/cmm (157-399); Red Blood Count 3.36 10^6/uL (3.85-5.65); Red Cell Distribution Width 14.3 % (12.1-15.1); White Blood Count 5.93 10^3/uL (3.29-11.43)
== END 2025-01-29 11:41 | disposition home or self-care (01) ==
LOC: LAB 11:42
PROVIDERS: PCP Family Medicine; Visit Provider Obstetrics & Gynecology
DX: N93.9 Abnormal uterine and vaginal bleeding, unspecified (principal)
CPT/HCPCS: 36415; 85025

== ENCOUNTER 2025-02-17 08:07 | Day surgery (SDC) | payer MEDICAID, SELFPAY ==
[2025-02-17] VITALS (11 sets, daily range): BP systolic 108–134; BP diastolic 60–78; PULSE 73–84; RESP 16–18; TEMP 36.4–36.7; O2SAT 92–100; BMI 25.9
--- NOTE | 2025-02-17 08:49 | W.PM.OPSUD ---
Surgery/Procedure H&P Update DATE OF PROCEDURE: February 17, 2025 DATE H&P PERFORMED: 01/22/25 H&P UPDATE INFORMATION: I have reviewed H&P completed within last 30 days, I have examined patient prior to procedure and No changes to prior documentation PREOP DIAGNOSIS: abnormal uterine bleeding PLANNED PROCEDURE: Operation Date: 02/17/25 09:20 Proposed Procedures p Hysteroscopy w/ Endometrial Sampling 76286, N92.1, N93.9(Not Applicable) - Lucas Lopez MD s endometrial polypectomy(Not Applicable) - Lucas Lopez MD
--- NOTE | 2025-02-17 08:51 | P.ANESASSM_ITS ---
Pre-Anesthetic Assessment Height/Weight: Height 5 ft 9 in Weight 176 lb Temp Pulse Resp BP Pulse Ox O2 Del Method 98.1 F 75 17 114/65 100 Room Air 02/17/25 08:36 02/17/25 08:36 02/17/25 08:36 02/17/25 08:36 02/17/25 08:36 02/17/25 08:36 Preop Diagnosis: abnormal uterine bleeding Operation Date: 02/17/25 09:20 Proposed Procedures p Hysteroscopy w/ Endometrial Sampling 98855, N92.1, N93.9(Not Applicable) - Lucas Lopez MD s endometrial polypectomy(Not Applicable) - Lucas Lopez MD Was Beta Emma taken within 24 hours: N/A Was Clonidine taken within 24 hours: N/A Social No alcohol and No tobacco Exam alert, oriented x 3, clear to auscultation bilaterally and regular rate & rhythm Airway Submandibular: within normal limits Cervical ROM: within normal limits Mallampati: Class III Dentition: full Anesthetic Plan ASA status: 3 Anesthesia: General Other: History of PONV after belly surgery NPO since yesterday evening History of hypertension on lisinopril GERD on omeprazole Moderate alcohol use Labs reviewed from 01/29/2025 and acceptable for procedure METs greater than 4 Plan for general anesthesia Medications/Allergies Home Medications ?Medication ?Instructions ?Recorded ?Confirmed ?Last Taken ?Type ferrous sulfate 325 mg (65 mg 325 mg PO DAILY #90 tabs 05/08/24 02/16/25 02/15/25 Rx iron) tablet (FeroSul) acyclovir 400 mg tablet 400 mg PO BID #180 tabs 10/0102/16/25 Unknown Rx alprazolam 0.25 mg tablet (Xanax) 0.25 mg PO BID PRN a nxiety #30 tabs 10/16/24 02/16/25 Unknown Rx buspirone 10 mg tablet 20 mg (2 x 10 mg) PO BID anx iety 10/16/24 02/16/25 Unknown Rx prevention #360 tabs ibuprofen 800 mg tablet 800 mg PO TID PRN pain #90 t abs 10/16/24 02/16/25 Unknown Rx omeprazole 40 mg capsule,delayed 40 mg PO DAILY #90 ca ps 10/16/24 02/16/25 02/15/25 Rx release fluoxetine 20 mg capsule (Prozac) 20 mg PO DAILY #90 c aps 11/13/24 02/16/25 Unknown Rx lisinopril 5 mg tablet 5 mg PO DAILY 30 days #30 ta bs 12/16/24 02/16/25 02/15/25 Rx norethindrone 1.5 mg-ethinyl 1 tab PO DAILY #84 tabs 0 02/17/25 Unknown Rx estradiol 30 mcg(21)/iron 75 mg(7) tablet (June FE 1.02/27 (28)) Allergies Allergy/AdvReac Type Severity Reaction Status Date / Time Penicillins Allergy ALGY-Rash Verified 01/22/25 08:07 [facility] Anesthesia Medical History Psychiatric care No pertinent past medical history Surgical History H/O breast augmentation History of tubal ligation History of reversal of tubal ligation Family History Father CAD (coronary artery disease) Diabetes Family/Other Cancer stomach Denies family history of Colon cancer Ovarian cancer Heart disease Hyperlipidemia Breast cancer Hypertension Uterine cancer Thyroid disease Stroke Social History Smoking and tobacco/nicotine status: never used tobacco/nicotine
[2025-02-17] MEDS: scopolamine 1 mg PATCH 1 PATCH TRANSDERMA (08:53)
[2025-02-17] MEDS: sodium chloride 0.9% 1,000 ML 30 ML IV (08:55)
[2025-02-17] MEDS: fentaNYL 50 mcg/mL INJ 2mL IVP (10:27)
--- NOTE | 2025-02-17 11:37 | ANE.PACU2 ---
Inpatient post-anesthesia follow up: Airway intact: Yes Vital signs: Temperature 97.7 F Pulse Rate 74 Respiratory Rate 18 Blood Pressure 134/77 Pulse Oximetry 99 Oxygen Delivery Me thod Room Air Oxygen Flow Rate Fraction of Inspir ed Oxygen Hydration adequate: Yes Nausea and vomiting: No Pain level: 1 Mental status: Baseline
--- NOTE | 2025-02-17 11:50 | PM.OP ---
Operative Report Date of procedure: February 17, 2025 Pre-op diagnosis: abnormal uterine bleeding Post-op diagnosis: same Post-op findings: multiple small endometrial polyps with varying sizes Moderate endometrial tissue Normal appearing cervix with 0.5 cm endocervical polyp Procedure done: Hysteroscopy Endometrial sampling and polypectomy with Myosure Curettage of uterus Removal of endocervical polyp Implants: none Specimens removed/disposition: endometrial curettings endocervical polyp Surgeon: Lucas Lopez MD Anesthesia: MAC Estimated blood loss (mL): 0 Complications: none Findings: multiple small endometrial polyps with varying sizes Moderate endometrial tissue Normal appearing cervix with 0.5 cm endocervical polyp Condition: stable Disposition: PACU Brief History: 49 y.o. with abnormal uterine bleeding, menometrorrhagia Procedure: Informed consent signed. Patient was taken to the operating room. Anesthesia was induced. Patient was placed in dorsolithotomy position, prepped and draped for hysteroscopy. A bivalve speculum was placed in the vagina. The cervix had a 0.5 cm endocervical polyp. This was removed and sent to pathology. The vagina was normal. The anterior lip of the cervix was grasped with a sharp-toothed tenaculum. The cervix was serially dilated with Hegar dilators. The uterus was sounded to 8 cm. A hysteroscope was placed into the endometrial cavity. There were multiple small endometrial polyps with varying sizes. Moderate endometrial tissue was seen. The endocervical canal was normal. The endometrial cavity was otherwise normal. A Myosure device was then inserted and the endometrial polyps were removed and sent to pathology. Endometrial sampling was also done. The endometrial cavity was seen to be intact. The hysteroscope and Myosure were then removed. Curettage was done with a small curette. Endometrial tissue was sent to pathology. The sharp-toothed tenaculum was removed. There was no bleeding from the endometrial cavity or cervix. The patient was then placed supine and awakened and taken to the PACU. Postop condition: stable EBL: none Sponge and instruments counts were normal x 2 Complications: none
[2025-02-19 10:27] LABS: OR HCG Qualitative Urine Negative (Negative)
== END 2025-02-17 11:37 | disposition home or self-care (01) ==
PROVIDERS: Student in an Organized Health Care Education/Training Program; Visit Provider Obstetrics & Gynecology
PROC: 0UJD8ZZ Inspection of Uterus and Cervix, Via Natural or Artificial Opening Endoscopic (ICD-10-PCS; CPT 58555; principal; 2025-02-17 09:20)
PROC: (CPT 58558; 2025-02-17 09:20)
DX: N93.8 Other specified abnormal uterine and vaginal bleeding (principal); N84.0 Polyp of corpus uteri; K21.9 Gastro-esophageal reflux disease without esophagitis; I10 Essential (primary) hypertension
CPT/HCPCS: 58558; 81025; 88305; 88342; J1100; J2405; J2704; J3010; J7030; J9999

== ENCOUNTER → 2025-05-12 09:01 | Outpatient (BNVA) | payer MEDICAID, SELFPAY | PROVIDERS: PCP Nurse Practitioner Family; Visit Provider Family Medicine | DX: Z01.818 Encounter for other preprocedural examination (principal) | CPT/HCPCS: 80053; 85007; 85027 ==

== ENCOUNTER 2025-06-09 11:29 | Observation (INO) | payer MEDICAID, SELFPAY ==
[2025-06-09] VITALS (16 sets, daily range): BP systolic 110–160; BP diastolic 57–91; PULSE 69–107; RESP 12–21; TEMP 36.4–37.2; O2SAT 94–100; BMI 29.9
--- NOTE | 2025-06-09 00:38 | P.HP_ITS ---
Same Day Surgery H&P Indication for Procedure/HPI DATE OF PROCEDURE: June 09, 2025 CHIEF COMPLAINT/INDICATIONFOR SURGICAL PROCEDURE: menometrorrhagia PREOP DIAGNOSIS: menometrorrhagia PLANNED PROCEDURE: Operation Date: 06/09/25 07:00 Proposed Procedures p Laparoscopic Assist Vaginal Hysterectomy 45068 N92.1 D64.9(Not Applicable) - Lucas Lopez MD Medications/Allergies* Allergies/Adverse Reactions Allergy/AdvReac Type Severity Reaction Status Date / Time Penicillins Allergy ALGY-Rash Verified 05/12/25 08:38 Pertinent History/Comorbid Conditions* Medical History (Updated 03/05/25 @ 11:25 by ARIANA Bailey) Psychiatric care No pertinent past medical history Surgical History (Updated 10/16/24 @ 11:15 by Manoj Diaz CREATIVE CONSULTANT) H/O breast augmentation History of tubal ligation History of reversal of tubal ligation Family History (Updated 06/27/23 @ 07:49 by Piotr Rodriguez) Diabetes Father CAD (coronary artery disease) Father Cancer Family/Other stomach Denies family history of Colon cancer Ovarian cancer Heart disease Hyperlipidemia Breast cancer Hypertension Uterine cancer Thyroid disease Stroke Social History Smoking and tobacco/nicotine status: unknown if used tobacco/nicotine Pertinent Exam Findings alert, oriented x 3, clear to auscultation bilaterally and regular rate & rhythm Recommendations Surgery/Procedure today Coding Level of Care Code Acute Code for Chg Fwd
[2025-06-09 06:28] LABS: OR HCG Qualitative Urine Negative (Negative)
--- NOTE | 2025-06-09 06:38 | ANES.PREANE2 ---
Pre-Anesthetic Assessment Height/Weight: Height 5 ft 6 in Weight 186 lb Temp Pulse Resp BP Pulse Ox O2 Del Method 97.6 F 69 18 151/91 100 Room Air 06/09/25 06:17 06/09/25 06:17 06/09/25 06:17 06/09/25 06:17 06/09/25 06:17 06/09/25 06:17 Preop Diagnosis: menometrorrhagia Operation Date: 06/09/25 07:00 Proposed Procedures p Laparoscopic Assist Vaginal Hysterectomy 05824 N92.1 D64.9(Not Applicable) - Lucas Lopez MD Was Beta Emma taken within 24 hours: N/A Was Clonidine taken within 24 hours: N/A Last intake: Intake Last Liquid Date 06/08/25 Last Liquid Time 23:30 Last Solid Date 06/08/25 Last Solid Time 18:00 Social No alcohol and No tobacco Exam alert, oriented x 3, clear to auscultation bilaterally and regular rate & rhythm Airway Submandibular: within normal limits Cervical ROM: within normal limits Mallampati: Class II Dentition: full Anesthetic Plan ASA status: 3 Anesthesia: General Other: History of PONV, scopolamine patch applied. Plan on IntraOp Decadron and Zofran NPO since yesterday evening History of hypertension on lisinopril GERD controlled with omeprazole Labs reviewed from 05/12/2025 and acceptable for procedure Plan for GETA Medications/Allergies Home Medications ?Medication ?Instructions ?Recorded ?Confirmed ?Last Taken ?Type ferrous sulfate 325 mg (65 mg 325 mg PO DAILY #90 tabs 05/08/24 06/08/25 06/07/25 Rx iron) tablet (FeroSul) acyclovir 400 mg tablet 400 mg PO BID #180 tabs 10/16/24 06/08/25 06/08/25 Rx ibuprofen 800 mg tablet 800 mg PO TID PRN pain #90 tabs 10/16/24 06/08/25 06/08/25 Rx omeprazole 40 mg capsule,delayed 40 mg PO DAILY #90 caps 10/16/24 06/08/25 06/07/25 Rx release alprazolam 0.25 mg tablet 0.25 mg PO BID 30 days #60 tabs 03/05/25 06/08/25 06/08/25 Rx buspirone 10 mg tablet 10 mg PO BID 90 days #180 tabs 03/05/25 06/08/25 06/08/25 Rx lisinopril 5 mg tablet 5 mg PO DAILY 90 days #90 tabs 03/05/25 06/09/25 06/08/25 Rx norethindrone 1.5 mg-ethinyl 1 tab PO DAILY #84 tabs 05/13/25 06/08/25 Unknown Rx estradiol 30 mcg(21)/iron 75 mg(7) tablet ([place] FE 1.5/30 (28)) Allergies Allergy/AdvReac Type Severity Reaction Status Date / Time Penicillins Allergy ALGY-Rash Verified 05/12/25 08:38 [facility] Anesthesia Medical History Psychiatric care No pertinent past medical history Surgical History H/O breast augmentation History of tubal ligation History of reversal of tubal ligation Family History Father CAD (coronary artery disease) Diabetes Family/Other Cancer stomach Denies family history of Colon cancer Ovarian cancer Heart disease Hyperlipidemia Breast cancer Hypertension Uterine cancer Thyroid disease Stroke Social History Smoking and tobacco/nicotine status: unknown if used tobacco/nicotine
[2025-06-09] MEDS: metroNIDAZOLE IV 500 MG/100 ML PREMIX 100 MG IV (06:46)
--- NOTE | 2025-06-09 06:50 | W.PM.OPSUD ---
Surgery/Procedure H&P Update DATE OF PROCEDURE: June 09, 2025 DATE H&P PERFORMED: 05/12/25 H&P UPDATE INFORMATION: I have reviewed H&P completed within last 30 days, I have examined patient prior to procedure and No changes to prior documentation PREOP DIAGNOSIS: menometrorrhagia PLANNED PROCEDURE: Operation Date: 06/09/25 07:00 Proposed Procedures p Laparoscopic Assist Vaginal Hysterectomy 88094 N92.1 D64.9(Not Applicable) - Lucas Lopez MD
[2025-06-09] MEDS: lidocaine-epi 2% PF 1:200,000 20 mL SDV XX (09:42)
--- NOTE | 2025-06-09 10:48 | PM.OP2 ---
Brief Operative Note Date of procedure: 06/09/25 Pre-op diagnosis: menometrorrhagia Post-op diagnosis: same Procedure Done: laparoscopic-assisted vaginal hysterectomy Surgeon: Lucas Lopez Estimated blood loss (mL): 200 Complications: none Post-op Plan: floor
[2025-06-09] MEDS: fentaNYL 50 mcg/mL INJ 2mL IVP (11:27)
--- NOTE | 2025-06-09 11:35 | PM.OP ---
Operative Report Date of procedure: June 09, 2025 Pre-op diagnosis: menometrorrhagia Post-op diagnosis: same Post-op findings: Uterus enlarged to 16-week size + fibroids + pelvic adhesions Normal ovaries and tubes Intact bladder Procedure done: Laparoscopic assisted vaginal hysterectomy Implants: none Specimens removed/disposition: uterus with cervix Surgeon: Lucas Lopez MD Anesthesia: General Estimated blood loss (mL): 250 Complications: none Findings: see above Condition: stable Disposition: PACU Brief History: 49 y.o. with menometrorrhagia Procedure: The patient was taken to the operating room, placed supine on the table. General endotracheal anesthesia was induced. A whitlock catheter was placed which drained clear urine. The patient was placed in dorsolithotomy position for laparoscopic surgery. The abdomen and perineum were prepped and draped in the usual sterile fashion. A Narda uterine elevator was placed via the cervix for manipulation of the uterus. An umbilical skin incision was made measuring approximately 1 cm. A trocar with sheath was placed into the peritoneal cavity under laparoscopic guidance. After confirming intraperitoneal entry, a pneumoperitoneum was achieved. The uterus was enlarged, with fibroids. There were adhesions between the uterus and omentum, these were removed using the Ligasure device. Two additional skin incisions were made measuring 0.5 cm each in the suprapubic and left lower quadrant. 5 mm trocars with sheaths were inserted via these incisions under laparoscopic visualization. A Ligasure device and endograsper were placed. The Ligasure device was used to divide the round ligaments on both sides followed by the uteroovarian ligaments. These were successfully coagulated and divided without any bleeding. This was carried down to the uterine arteries on both sides and the bladder flap from the cervix. It was then decided to proceed vaginally to complete the vaginal hysterectomy portion of the procedure. The pneumoperitoneum was allowed to escape. The Narda was removed. The cervicovaginal junction was incised and the anterior and posterior cul-de-sacs were entered without any injury to the underlying organs including the bowel and the bladder. The uterine vessels on both sides were then divided and coagulated without any difficulties. The uterus was removed. No bleeding was seen. The vaginal cuff was then closed using a running suture of O-Vicryl. The pneumoperitoneum was re-instituted and the pelvis was examined using the laparoscope to confirm good hemostasis. Following this, all instruments were removed from the abdomen after the pneumoperitoneum was allowed to escape. The laparoscopic skin incisions were then closed using 4-O skin sutures. The patient was placed supine and taken to the recovery room. Postoperative condition stable EBL: 250 cc Complications: none To PACU in good condition
--- NOTE | 2025-06-09 11:50 | ANE.PACU2 ---
Inpatient post-anesthesia follow up: Airway intact: Yes Vital signs: Temperature 97.9 F Pulse Rate 90 Respiratory Rate 16 Blood Pressure 138/81 Pulse Oximetry 99 Oxygen Delivery Me thod Room Air Oxygen Flow Rate Fraction of Inspir ed Oxygen Hydration adequate: Yes Nausea and vomiting: No Pain level: 1 Mental status: Baseline
[2025-06-09] MEDS: ondansetron 2 mg/ML SDV 2 mL 4 MG IVP ×3 (12:14→21:08)
[2025-06-09] MEDS: HYDROcodone-acetaminophen 5-325 mg Tablet PO (14:00)
[2025-06-10 05:01] VITALS: BP 127/64; PULSE 79; RESP 16; TEMP 36.9; O2SAT 95
[2025-06-10 05:16] LABS: Hematocrit 30.2 % (36-47); Hemoglobin 9.60 g/dL (11.27-16.99); Mean Corpuscular HGB Conc 31.8 g/dL (30-55); Mean Corpuscular Hemoglobin 28.9 pg (27-33); Mean Corpuscular Volume 91.0 fl (85-98); Platelet Count 235 10^3/cmm (157-399); Red Blood Count 3.32 10^6/uL (3.85-5.65); White Blood Count 9.56 10^3/uL (3.29-11.43)
[2025-06-10 12:06] VITALS: BP 131/76; PULSE 56; RESP 16; TEMP 36.8; O2SAT 99
== END 2025-06-10 12:07 | disposition home or self-care (01) ==
LOC: OBGYN 11:30
PROVIDERS: Admitting Provider Obstetrics & Gynecology; PCP Nurse Practitioner Family; Visit Provider Obstetrics & Gynecology
PROC: 0UT9FZZ Resection of Uterus, Via Natural or Artificial Opening With Percutaneous Endoscopic Assistance (ICD-10-PCS; CPT 58553; principal; 2025-06-09 07:00)
DX: N92.1 Excessive and frequent menstruation with irregular cycle (principal); I10 Essential (primary) hypertension; K21.9 Gastro-esophageal reflux disease without esophagitis
CPT/HCPCS: 58553; 36415; 36416; 81025; 85027; 86850; 86900; 88307; A4216; G0378; J1100; J1171; J1885; J2003; J2250; J2405; J2704; J3010; J3490; J3535; J7030; J9999